=== PATIENT | male | born 1955 | race Caucasian/White ===

== ENCOUNTER 2016-04-16 06:43 | Day surgery (SDC) | payer BC ==
[2016-04-15 09:21] VITALS: BMI 28.9
[2016-04-16] MEDS ORDERED: LIDOCAINE HCL/PF 1% SDV 5ML VIAL ONE (07:51)
[2016-04-16] MEDS ORDERED: PROPOFOL 20 ML ONE ×3 (07:51)
[2016-04-16 08:55] VITALS: TEMP 98.1
[2016-04-16 09:16] VITALS: PULSE 74
[2016-04-16 10:17] LABS: BASOPHIL 0.3 % (0-2.0); EOSINOPHIL 1.3 % (0-4.5); MCH 30.6 pg (25.7-33.7); MCHC 34.6 g/dl (32.0-35.9); MEAN CELL VOLUME 88.5 fl (80-96); MEAN PLT VOLUME 7.8 fl (7.5-11.1); NEUTROPHILS 71.2 % (42.8-82.8); PLATELET COUNT 230 K/MM3 (134-434); WHITE BLOOD COUNT 9.9 K/mm3 (4.0-10.0)
[2016-04-16 10:48] LABS: ALBUMIN 3.9 g/dl (3.4-5.0); ANION GAP 11 (8-16); CALCIUM 8.7 mg/dL (8.5-10.1); CHOLESTEROL 204 mg/dL (50-200); CO2 24 mmol/L (21-32); CREATININE 0.7 mg/dL (0.7-1.3); GLUCOSE,RANDOM 96 mg/dL (74-106); LDL CHOLESTEROL (ONLY SJRH) 127 mg/dL (5-100); SGOT/AST 16 U/L (15-37); SGPT/ALT 24 U/L (12-78); TOT PROT 7.1 g/dl (6.4-8.2)
[2016-04-16 10:51] LABS: ALK PHOS 50 U/L (45-117); FERRITIN 247.428 ng/ml (16.4-293.9)
[2016-04-16 11:26] LABS: C-REACTIVE PROTEIN 4.2 MG/DL (0.00-0.3)
[2016-04-16 14:26] VITALS: BP 114/73
[2016-04-17 06:07] LABS: PROSTATE SPECIFIC ANTIGEN 1.5 ng/mL (0.0-4.0)
--- NOTE | 2016-04-19 10:23 | PATH ---
Surgical Pathology Report Patient Name: SHERRIE ZAIDI [facility] Rec. #: [id number] /Age/Gender: 1955 (Age: 60) / M Account: [id number] Location: U-ENDOSCOPY Taken: 04/16/2016 Received: 04/16/2016 Reported: 04/19/2016 Physicians: Michi Hwang M.D. Specimen(s) Received A: BX ILEUM & CECUM B: BX RT COLON C: BX TRANSVERSE COLON D: BX DESCENDING COLON E: BX SIGMOID F: BX RECTUM Clinical History Adenoma and ulcerative colitis surveillance Quiescent ulcerative colitis Final Diagnosis A. TERMINAL ILEUM AND CECUM, BIOPSY: COLONIC MUCOSA WITH NO PATHOLOGIC CHANGES. NO ACTIVE COLITIS, ARCHITECTURAL DISTORTION, GRANULOMATA, OR DYSPLASIA IDENTIFIED. B. COLON, RIGHT, BIOPSY: COLONIC MUCOSA WITH NO PATHOLOGIC CHANGES. NO ACTIVE COLITIS, ARCHITECTURAL DISTORTION, GRANULOMATA, OR DYSPLASIA IDENTIFIED. C. COLON, TRANSVERSE, BIOPSY: COLONIC MUCOSA WITH NO PATHOLOGIC CHANGES. NO ACTIVE COLITIS, ARCHITECTURAL DISTORTION, GRANULOMATA, OR DYSPLASIA IDENTIFIED. D. COLON, DESCENDING, BIOPSY: COLONIC MUCOSA WITH FOCAL ARCHITECTURAL DISTORTION SUGGESTIVE OF QUIESCENT COLITIS. NO ACTIVE COLITIS, ARCHITECTURAL DISTORTION, GRANULOMATA, OR DYSPLASIA IDENTIFIED. E. COLON, SIGMOID, BIOPSY: COLONIC MUCOSA WITH FOCAL ARCHITECTURAL DISTORTION SUGGESTIVE OF QUIESCENT COLITIS. NO ACTIVE COLITIS, ARCHITECTURAL DISTORTION, GRANULOMATA, OR DYSPLASIA IDENTIFIED. F. COLON, RECTUM, BIOPSY: COLONIC MUCOSA WITH SUBMUCOSAL ADIPOSE TISSUE SUGGESTIVE OF LIPOMA. NO ACTIVE COLITIS, ARCHITECTURAL DISTORTION, GRANULOMATA, OR DYSPLASIA IDENTIFIED. Electronically Signed Pipo Castle M.D. Gross Description A. Received in formalin, labeled "biopsy ileum and cecum" are 5 boyce, irregular portions of soft tissue averaging 0.3 cm. in greatest dimension. The specimens are submitted in toto in one cassette. B. Received in formalin, labeled "biopsy right colon" are 5 boyce, irregular portions of soft tissue ranging from 0.2-0.4 cm. in greatest dimension. The specimens are submitted in toto in one cassette. C. Received in formalin, labeled "biopsy transverse colon" are 4 boyce, irregular portions of soft tissue ranging from 0.1-0.3 cm. in greatest dimension. The specimens are submitted in toto in one cassette. D. Received in formalin, labeled "biopsy descending colon" are 4 boyce, irregular portions of soft tissue ranging from 0.2-0.3 cm. in greatest dimension. The specimens are submitted in toto in one cassette. E. Received in formalin, labeled "biopsy sigmoid" are 3 boyce, irregular portions of soft tissue ranging from 0.3-0.4 cm. in greatest dimension. The specimens are submitted in toto in one cassette. F. Received in formalin, labeled "biopsy rectum" are 3 boyce, irregular portions of soft tissue averaging 0.4 cm. in greatest dimension. The specimens are submitted in toto in one cassette. 04/16/2016 [facility]04/16/2016
== END 2016-04-16 09:50 | disposition home or self-care (01) ==
LOC: JASU-ENDO 06:43 → JASU-SURG 06:43 → JASU-ENDO 09:50
PROVIDERS: ATTEND Internal Medicine Gastroenterology
PROC: 0DBE8ZX Excision of Large Intestine, Via Natural or Artificial Opening Endoscopic, Diagnostic (ICD-10-PCS; principal; 2016-04-16 08:00)
DX: Z12.11 Encounter for screening for malignant neoplasm of colon (principal); K51.90 Ulcerative colitis, unspecified, without complications; Z86.010 Personal history of colon polyps
CPT/HCPCS: 36415; 80053; 82105; 82465; 82728; 83036; 83718; 83721; 84153; 84478; 85025; 86140; 88305-TC

== ENCOUNTER 2017-06-17 06:38 | Day surgery (SDC) | payer BC ==
[2017-06-16 11:51] VITALS: BMI 28.6
[2017-06-17 08:38] VITALS: TEMP 97.5
[2017-06-17 09:39] LABS: BASO % 0.3 % (0-2.0); EOS % 1.8 % (0-4.5); HEMATOCRIT 47.1 % (35.4-49); HEMOGLOBIN 16.1 GM/dL (11.7-16.9); LYMPH % 18.9 % (8-40); MCH 30.2 pg (25.7-33.7); MCHC 34.1 g/dl (32.0-35.9); MEAN CELL VOLUME 88.7 fl (80-96); MEAN PLT VOLUME 7.7 fl (7.5-11.1); MONO % 10.8 % (3.8-10.2); NEUT % 68.2 % (42.8-82.8); PLATELET COUNT 263 K/MM3 (134-434); RBC 5.31 M/mm3 (4.00-5.60); RDW 13.9 % (11.9-15.9); WHITE BLOOD COUNT 8.5 K/mm3 (4.0-10.0)
[2017-06-17 09:47] VITALS: BP 120/80; PULSE 81
[2017-06-17 09:58] LABS: ALBUMIN 4.3 g/dl (3.4-5.0); ANION GAP 9 (8-16); BILIRUBIN,TOTAL 0.8 mg/dL (0.2-1.0); BLOOD UREA NITROGEN 10 mg/dL (7-18); CALCIUM 9.3 mg/dL (8.5-10.1); CHLORIDE 100 mmol/L (98-107); CO2 27 mmol/L (21-32); CREATININE 0.7 mg/dL (0.7-1.3); GLUCOSE,RANDOM 110 mg/dL (74-106); POTASSIUM 3.8 mmol/L (3.5-5.1); SGOT/AST 17 U/L (15-37); SGPT/ALT 32 U/L (12-78); SODIUM 136 mmol/L (136-145); TOT PROT 7.6 g/dl (6.4-8.2)
[2017-06-17 10:01] LABS: ALK PHOS 59 U/L (45-117)
--- NOTE | 2017-06-20 11:34 | PATH ---
Surgical Pathology Report Patient Name: SHERRIE ZAIDI [facility]. Rec. #: [id number] /Age/Gender: 1955 (Age: 61) / M Account: [id number] Location: U-ENDOSCOPY Taken: 06/17/2017 Received: 06/17/2017 Reported: 06/20/2017 Physicians: Michi Hwang M.D. Specimen(s) Received A: BX CECUM B: BX RIGHT COLON C: BX PROXIMAL TRANSVERSE COLON D: BX DESCENDING COLON E: BX SIGMOID F: BX RECTUM Clinical History Ulcerative colitis and adenoma surveillance Final Diagnosis A. COLON, CECUM, BIOPSY: COLONIC MUCOSA WITH SMALL LYMPHOID AGGREGATE WITHIN LAMINA PROPRIA. NO ACTIVE COLITIS, ARCHITECTURAL DISTORTION, GRANULOMATA, OR DYSPLASIA IDENTIFIED. NO MICROSCOPIC COLITIS IDENTIFIED (NO LYMPHOCYTIC OR COLLAGENOUS COLITIS IDENTIFIED). B. COLON, RIGHT BIOPSY: COLONIC MUCOSA WITH NO PATHOLOGIC CHANGES. NO ACTIVE COLITIS, ARCHITECTURAL DISTORTION, GRANULOMATA, OR DYSPLASIA IDENTIFIED. NO MICROSCOPIC COLITIS IDENTIFIED (NO LYMPHOCYTIC OR COLLAGENOUS COLITIS IDENTIFIED). C. COLON, PROXIMAL TRANSVERSE, BIOPSY: COLONIC MUCOSA WITH NO PATHOLOGIC CHANGES. NO ACTIVE COLITIS, ARCHITECTURAL DISTORTION, GRANULOMATA, OR DYSPLASIA IDENTIFIED. NO MICROSCOPIC COLITIS IDENTIFIED (NO LYMPHOCYTIC OR COLLAGENOUS COLITIS IDENTIFIED). D. COLON, DESCENDING, BIOPSY: COLONIC MUCOSA WITH NO PATHOLOGIC CHANGES. NO ACTIVE COLITIS, ARCHITECTURAL DISTORTION, GRANULOMATA, OR DYSPLASIA IDENTIFIED. NO MICROSCOPIC COLITIS IDENTIFIED (NO LYMPHOCYTIC OR COLLAGENOUS COLITIS IDENTIFIED). E. COLON, SIGMOID, BIOPSY: COLONIC MUCOSA WITH EXTRAVASATION OF RED BLOOD CELLS WITHIN LAMINA PROPRIA. NO ACTIVE COLITIS, ARCHITECTURAL DISTORTION, GRANULOMATA, OR DYSPLASIA IDENTIFIED. NO MICROSCOPIC COLITIS IDENTIFIED (NO LYMPHOCYTIC OR COLLAGENOUS COLITIS IDENTIFIED). F. COLON, RECTUM, BIOPSY: COLONIC MUCOSA WITH HYPERPLASTIC CHANGES. NO ACTIVE INFLAMMATION, CRYPT ARCHITECTURE DISTORTION, GRANULOMAS, OR DYSPLASIA IDENTIFIED. NO MICROSCOPIC COLITIS IDENTIFIED (NO LYMPHOCYTIC OR COLLAGENOUS COLITIS IDENTIFIED). Electronically Signed Pipo Castle M.D. Gross Description A. Received in formalin, labeled "BX cecal rule out dysplasia" are 3 boyce, irregular portions of soft tissue ranging in size from 0.3-0.4 cm. in greatest dimension. The specimens are submitted in toto in one cassette. B. Received in formalin, labeled "BX right colon rule out dysplasia" are 2 boyce, irregular portions of soft tissue measuring 0.2 and 0.4 cm. in greatest dimension. The specimens are submitted in toto in one cassette. C. Received in formalin, labeled "BX proximal transverse colon rule out dysplasia" are 4 boyce, irregular portions of soft tissue ranging in size from 0.2-0.3 cm. in greatest dimension. The specimens are submitted in toto in one cassette. D. Received in formalin, labeled "BX descending colon rule out dysplasia" are 4 boyce, irregular portions of soft tissue ranging in size from 0.2-0.3 cm. in greatest dimension. The specimens are submitted in toto in one cassette. E. Received in formalin, labeled "BX sigmoid colon" are 4 boyce, irregular portions of soft tissue ranging in size from 0.2-0.4 cm. in greatest dimension. The specimens are submitted in toto in one cassette. F. Received in formalin, labeled "BX rectum rule out dysplasia" are 3 boyce, irregular portions of soft tissue ranging in size from 0.2-0.4 cm. in greatest dimension. The specimens are submitted in toto in one cassette. HIEU/06/17/2017 jenise06/17/2017
== END 2017-06-17 09:40 | disposition home or self-care (01) ==
LOC: JASU-ENDO 06:38
PROVIDERS: ATTEND Internal Medicine Gastroenterology
PROC: 0DBE8ZX Excision of Large Intestine, Via Natural or Artificial Opening Endoscopic, Diagnostic (ICD-10-PCS; principal; 2017-06-17 08:00)
DX: Z12.11 Encounter for screening for malignant neoplasm of colon (principal); K51.90 Ulcerative colitis, unspecified, without complications
CPT/HCPCS: 36415; 80053; 82306; 82728; 83540; 83550; 85025; 86140; 88305-TC

== ENCOUNTER 2018-06-09 06:49 | Day surgery (SDC) | payer BC ==
[2018-06-08 09:15] VITALS: BMI 25.9
[2018-06-09 08:50] VITALS: TEMP 98.3
[2018-06-09 10:30] VITALS: BP 125/88; PULSE 84
[2018-06-09 10:39] LABS: BASO % 0.1 % (0-2.0); EOS % 0.1 % (0-4.5); HEMATOCRIT 45.1 % (35.4-49); HEMOGLOBIN 15.4 GM/dL (11.7-16.9); LYMPH % 3.9 % (8-40); MCH 30.3 pg (25.7-33.7); MCHC 34.1 g/dl (32.0-35.9); MEAN CELL VOLUME 88.6 fl (80-96); MEAN PLT VOLUME 6.8 fl (7.5-11.1); MONO % 1.7 % (3.8-10.2); NEUT % 94.2 % (42.8-82.8); PLATELET COUNT 374 K/MM3 (134-434); RBC 5.09 M/mm3 (4.00-5.60); RDW 14.3 % (11.9-15.9); WHITE BLOOD COUNT 16.4 K/mm3 (4.0-10.0)
[2018-06-09 11:30] LABS: ALBUMIN 4.1 g/dl (3.4-5.0); ALK PHOS 57 U/L (45-117); ANION GAP 11 MMOL/L (8-16); BLOOD UREA NITROGEN 11 mg/dL (7-18); CALCIUM 9.1 mg/dL (8.5-10.1); CHLORIDE 96 mmol/L (98-107); CO2 26 mmol/L (21-32); CREATININE 0.7 mg/dL (0.55-1.3); GLUCOSE,RANDOM 123 mg/dL (74-106); POTASSIUM 3.7 mmol/L (3.5-5.1); SGOT/AST 11 U/L (15-37); SGPT/ALT 24 U/L (13-61); SODIUM 132 mmol/L (136-145); TOT PROT 7.5 g/dl (6.4-8.2)
[2018-06-09 11:49] LABS: ANISOCYTOSIS 0; MACROCYTOSIS 0; PLATELET ESTIMATE NORMAL
[2018-06-10 13:14] LABS: HEPATITIS B CORE ANTIBODY,IGM Negative (Negative)
[2018-06-10 16:11] LABS: CARCINOEMBRYONIC ANTIGEN 1.2 ng/mL (0.0-4.7)
[2018-06-10 19:12] LABS: HEP B CORE AB, IGM Negative (Negative); HEP B CORE AB, TOT Negative (Negative)
[2018-06-12 23:08] LABS: HBSAG SCREEN Negative (Negative); HEP A AB, IGM Negative (Negative); HEP B CORE AB, TOT Negative (Negative)
--- NOTE | 2018-06-13 12:56 | PATH ---
Surgical Pathology Report Patient Name: SHERRIE ZAIDI [facility]. Rec. #: [id number] /Age/Gender: 1955 (Age: 62) / M Account: [id number] Location: U-ENDOSCOPY Taken: 06/09/2018 Received: 06/12/2018 Reported: 06/13/2018 Physicians: Michi Hwang M.D. Specimen(s) Received A: 2ND PORTION DUODENUM AND BULB B: FUNDUS POLYPS C: ANTRUM D: GE JUNCTION E: CECUM F: RIGHT COLON G: PROXIMAL TRANSVERSE COLON H: DESCENDING COLON I: SIGMOID J: RECTAL POLYPS Clinical History Flare of ulcerative colitis, rectal bleeding, weight loss Postoperative diagnosis: Gastric fundic polyps, ulcerative colitis, rectal ulcers Final Diagnosis A. DUODENUM, SECOND PORTION AND BULB, BIOPSY: DUODENAL MUCOSA WITH NO PATHOLOGIC CHANGES. NO HISTOLOGIC EVIDENCE OF GLUTEN SENSITIVE ENTEROPATHY (CELIAC SPRUE) IDENTIFIED. B. STOMACH, FUNDUS, BIOPSY: HYPERPLASTIC FOVEOLAR GLAND POLYP AND MILD CHRONIC GASTRITIS. NO ADENOMATOUS CHANGE IDENTIFIED. IMMUNOSTAIN FOR H. PYLORI IS NEGATIVE. C. STOMACH, ANTRUM, BIOPSY: GASTRIC ANTRAL AND FUNDIC MUCOSA WITH MILD CHRONIC GASTRITIS. IMMUNOSTAIN FOR H. PYLORI IS NEGATIVE. D. 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 SQUAMOUS EPITHELIUM WITH PAPILLOMATOSIS SUGGESTIVE OF REFLUX ESOPHAGITIS PRESENT. NO DYSPLASIA IDENTIFIED. E. COLON, CECUM, BIOPSY: COLONIC MUCOSA WITH NO PATHOLOGIC CHANGES. NO ACTIVE COLITIS, ARCHITECTURAL DISTORTION, GRANULOMATA, OR DYSPLASIA IDENTIFIED. NO MICROSCOPIC COLITIS IDENTIFIED (NO LYMPHOCYTIC OR COLLAGENOUS COLITIS IDENTIFIED). F. COLON, RIGHT, BIOPSY: COLONIC MUCOSA WITH NO PATHOLOGIC CHANGES. NO ACTIVE COLITIS, ARCHITECTURAL DISTORTION, GRANULOMATA, OR DYSPLASIA IDENTIFIED. NO MICROSCOPIC COLITIS IDENTIFIED (NO LYMPHOCYTIC OR COLLAGENOUS COLITIS IDENTIFIED). G. COLON, PROXIMAL TRANSVERSE, BIOPSY: COLONIC MUCOSA WITH NO PATHOLOGIC CHANGES. NO ACTIVE COLITIS, ARCHITECTURAL DISTORTION, GRANULOMATA, OR DYSPLASIA IDENTIFIED. NO MICROSCOPIC COLITIS IDENTIFIED (NO LYMPHOCYTIC OR COLLAGENOUS COLITIS IDENTIFIED). H. COLON, DESCENDING, BIOPSY: COLONIC MUCOSA WITH NO PATHOLOGIC CHANGES. NO ACTIVE COLITIS, ARCHITECTURAL DISTORTION, GRANULOMATA, OR DYSPLASIA IDENTIFIED. NO MICROSCOPIC COLITIS IDENTIFIED (NO LYMPHOCYTIC OR COLLAGENOUS COLITIS IDENTIFIED). I. COLON, SIGMOID, BIOPSY: ACTIVE IDIOPATHIC INFLAMMATORY BOWEL DISEASE. NO GRANULOMA OR DYSPLASIA IDENTIFIED. J. COLON, RECTUM, BIOPSY: COLONIC MUCOSA WITH FOCAL ULCERATION WITH ASSOCIATED ACUTE AND CHRONIC INFLAMMATION AND REACTIVE CHANGES. NO DYSPLASIA OR GRANULOMA IDENTIFIED. Electronically Signed Pipo Castle M.D. Gross Description A. Received in formalin, labeled "second portion of duodenum and bulb" are 3 boyce, irregular portions of soft tissue ranging from 0.4-0.5 cm. in greatest dimension. The specimens are submitted in toto in one cassette. B. Received in formalin, labeled "gastric fundus polyps biopsy" are 4 boyce, irregular portions of soft tissue ranging from 0.3-0.4 cm. in greatest dimension. The specimens are submitted in toto in one cassette. C. Received in formalin, labeled "antrum biopsy" are 2 boyce, irregular portions of soft tissue measuring 0.4 and 0.6 cm. in greatest dimension. The specimens are submitted in toto in one cassette. D. Received in formalin, labeled "GE junction biopsy" are 2 boyce, irregular portions of soft tissue measuring 0.3 and 0.6 cm. in greatest dimension. The specimens are submitted in toto in one cassette. E. Received in formalin, labeled "cecum biopsy" are 4 boyce, irregular portions of soft tissue averaging 0.3 cm. in greatest dimension. The specimens are submitted in toto in one cassette. F. Received in formalin, labeled "right colon biopsy" are 7 boyce, irregular portions of soft tissue ranging from 0.1-0.4 cm. in greatest dimension. The specimens are submitted in toto in one cassette. G. Received in formalin, labeled "proximal transverse colon" are 4 boyce, irregular portions of soft tissue ranging from 0.3-0.7 cm. in greatest dimension. The specimens are submitted in toto in one cassette. H. Received in formalin, labeled "descending colon biopsy" are 4 boyce, irregular portions of soft tissue ranging from 0.2-0.6 cm. in greatest dimension. The specimens are submitted in toto in one cassette. I. Received in formalin, labeled "sigmoid colon biopsy" are 5 boyce, irregular portions of soft tissue ranging from 0.1-0.4 cm. in greatest dimension. The specimens are submitted in toto in one cassette. J. Received in formalin, labeled "rectum biopsy" are 2 boyce, irregular portions of soft tissue measuring 0.4 and 0.6 cm. in greatest dimension. The specimens are submitted in toto in one cassette. /06/12/2018 saudi06/12/2018
[2018-06-13 18:16] LABS: C-ANCA <1:20 titer (Neg:<1:20); P-ANCA <1:20 titer (Neg:<1:20); SERUM IRON SATURATION 8 % (15-55); TOTAL IRON BINDING CAPACITY 290 ug/dL (250-450); UIBC 267 ug/dL (111-343)
== END 2018-06-09 10:10 | disposition home or self-care (01) ==
LOC: JASU-ENDO 06:49
PROVIDERS: ATTEND Internal Medicine Gastroenterology
PROC: 0DBN8ZX Excision of Sigmoid Colon, Via Natural or Artificial Opening Endoscopic, Diagnostic (ICD-10-PCS; 2018-06-09)
PROC: 0DBM8ZX Excision of Descending Colon, Via Natural or Artificial Opening Endoscopic, Diagnostic (ICD-10-PCS; 2018-06-09)
PROC: 0DB48ZX Excision of Esophagogastric Junction, Via Natural or Artificial Opening Endoscopic, Diagnostic (ICD-10-PCS; 2018-06-09)
PROC: 0DB68ZX Excision of Stomach, Via Natural or Artificial Opening Endoscopic, Diagnostic (ICD-10-PCS; 2018-06-09)
PROC: 0DBH8ZX Excision of Cecum, Via Natural or Artificial Opening Endoscopic, Diagnostic (ICD-10-PCS; principal; 2018-06-09 08:00)
DX: Z12.11 Encounter for screening for malignant neoplasm of colon (principal); Z86.010 Personal history of colon polyps; K51.818 Other ulcerative colitis with other complication; K56.699 Other intestinal obstruction unspecified as to partial versus complete obstruction; K21.0 Gastro-esophageal reflux disease with esophagitis; K22.10 Ulcer of esophagus without bleeding; K31.7 Polyp of stomach and duodenum
CPT/HCPCS: 36415; 80053; 82378; 83520; 83540; 83550; 85025; 86256; 86480; 86671; 86704; 86705; 86706; 86707; 86708; 87340; 87350; 87522; 88305-TC; 88342-TC

== ENCOUNTER 2019-12-05 05:02 | Day surgery (SDC) | payer BC ==
[2019-12-03 15:42] VITALS: BMI 27.6
[2019-12-05 08:57] VITALS: TEMP 98
[2019-12-05 10:10] VITALS: BP 148/84; PULSE 73
[2019-12-05 10:12] LABS: BASO % 0.4 % (0-2.0); EOS % 0.9 % (0-4.5); HEMATOCRIT 46.9 % (35.4-49); LYMPH % 10.9 % (8-40); MCH 31.2 pg (25.7-33.7); MCHC 34.1 g/dl (32.0-35.9); MEAN CELL VOLUME 91.6 fl (80-96); MEAN PLT VOLUME 7.7 fl (7.5-11.1); MONO % 8.2 % (3.8-10.2); NEUT % 79.6 % (42.8-82.8); PLATELET COUNT 268 K/MM3 (134-434); RBC 5.12 M/mm3 (4.00-5.60); RDW 13.3 % (11.9-15.9); WHITE BLOOD COUNT 16.8 K/mm3 (4.0-10.0)
[2019-12-05 10:54] LABS: CHOLESTEROL 254 mg/dL (50-200); HDL CHOLESTEROL 70 mg/dL (40-60); IRON SERUM 23 ug/dL (50-175); LDL CHOLESTEROL (ONLY SJRH) 147 mg/dL (5-100); TRIGLYCERIDES 213 mg/dL (0-150)
[2019-12-05 11:01] LABS: TOTAL IRON BINDING CAPACITY 273 ug/dL (250-450)
[2019-12-05 11:07] LABS: BILIRUBIN,TOTAL 0.8 mg/dL (0.2-1); BLOOD UREA NITROGEN 11.4 mg/dL (7-18); CALCIUM 9.3 mg/dL (8.5-10.1); CREATININE 0.7 mg/dL (0.55-1.3); TOT PROT 7.4 g/dl (6.4-8.2)
[2019-12-05 14:16] LABS: PLATELET ESTIMATE NORMAL
[2019-12-08 20:07] LABS: C-ANCA <1:20 titer (Neg:<1:20)
[2019-12-10 16:09] LABS: ATYPICAL pANCA 1:40 titer (Neg:<1:20)
--- NOTE | 2019-12-10 17:19 | PATH ---
Surgical Pathology Report Patient Name: SHERRIE ZAIDI [facility]. Rec. #: [id number] /Age/Gender: 1955 (Age: 64) / M Account: [id number] Location: U-ENDOSCOPY Taken: 12/05/2019 Received: 12/05/2019 Reported: 12/10/2019 Physicians: Michi Hwang M.D. Specimen(s) Received A: GASTRIC ANTRUM B: GE JUNCTION C: ILEUM D: CECUM E: RIGHT COLON F: TRANVERSE COLON G: DESCENDING COLON H: SIGMOID COLON I: RECTUM (UPPER) @ 10CM J: ANUS (RECTUM @ 2CM) Clinical History Rule out Ingram's esophagus, h/o ulcerative colitis Postoperative diagnosis: GERD, gastritis, hiatal hernia, active proctosigmoiditis, ulcerative colitis Final Diagnosis A. GASTRIC ANTRUM, BIOPSY: GASTRIC MUCOSA WITH CHRONIC GASTRITIS. IMMUNOSTAIN FOR H. PYLORI IS NEGATIVE. NEGATIVE FOR INTESTINAL METAPLASIA. B. GE JUNCTION, BIOPSY: SQUAMOUS MUCOSA WITH NO SIGNIFICANT PATHOLOGIC CHANGE. NEGATIVE FOR INTESTINAL METAPLASIA. C. ILEUM, BIOPSY: ILEAL MUCOSA WITH NO SIGNIFICANT PATHOLOGIC CHANGE. NO EVIDENCE OF ACUTE INFLAMMATION. D. CECUM, BIOPSY: COLONIC MUCOSA WITH NO SIGNIFICANT PATHOLOGIC CHANGE. NO EVIDENCE OF ACUTE COLITIS. NEGATIVE FOR DYSPLASIA. E. RIGHT COLON, BIOPSY: COLONIC MUCOSA WITH NO SIGNIFICANT PATHOLOGIC CHANGE. NO EVIDENCE OF ACUTE COLITIS. NEGATIVE FOR DYSPLASIA. F. TRANSVERSE COLON, BIOPSY: COLONIC MUCOSA WITH NO SIGNIFICANT PATHOLOGIC CHANGE. NO EVIDENCE OF ACUTE COLITIS. NEGATIVE FOR DYSPLASIA. G. DESCENDING COLON, BIOPSY: COLONIC MUCOSA WITH FOCAL INCREASED EOSINOPHILS IN THE LAMINA PROPRIA. NO EVIDENCE OF ACUTE COLITIS. NEGATIVE FOR DYSPLASIA. H. SIGMOID COLON, BIOPSY: COLONIC MUCOSA WITH ACUTE AND CHRONIC INFLAMMATION IN THE LAMINA PROPRIA, ACUTE CRYPTITIS, AND ARCHITECTURAL DISTORTION. SEE COMMENT. I. RECTUM (UPPER) AT 10 CM, BIOPSY: COLONIC MUCOSA WITH FOCAL INCREASED EOSINOPHILS AND REACTIVE LYMPHOID AGGREGATE IN THE LAMINA PROPRIA. NO EVIDENCE OF ACUTE COLITIS. J. ANUS (RECTUM @2CM), BIOPSY: COLONIC MUCOSA WITH ACUTE AND CHRONIC INFLAMMATION IN THE LAMINA PROPRIA, ACUTE CRYPTITIS, AND ARCHITECTURAL DISTORTION. SEE COMMENT. Comment: There is no dysplasia or granuloma inflammation identified. In view of the prior clinical history of ulcerative colitis, findings are consistent with focal active ulcerative colitis (specimen H and specimen J). Electronically Signed Enrique Stein M.D. Gross Description A. Received in formalin, labeled "gastric antrum" are 2 boyce, irregular portions of soft tissue measuring 0.4 cm. in greatest dimension. The specimens are submitted in toto in one cassette. B. Received in formalin, labeled "GE junction" are 2 boyce, irregular portion of soft tissue measuring 0.3 cm. in greatest dimension. The specimens are submitted in toto in one cassette. C. Received in formalin, labeled "ileum" is a boyce, irregular portion of soft tissue measuring 0.4 cm. in greatest dimension. The specimens are submitted in toto in one cassette. D. Received in formalin, labeled "cecum" are 4 boyce, irregular portions of soft tissue measuring 0.5cm. in greatest dimension. The specimens are submitted in toto in one cassette. E. Received in formalin, labeled "right colon" are 2 boyce, irregular portion of soft tissue measuring 0.4cm. in greatest dimension. The specimens are submitted in toto in one cassette. F. Received in formalin, labeled "transverse colon" are 4 boyce, irregular portion of soft tissue measuring 0.3 cm. in greatest dimension. The specimens are submitted in toto in one cassette. G. Received in formalin, labeled "descending colon" are 5 boyce, irregular portions of soft tissue measuring 0.4 cm. in greatest dimension. The specimens are submitted in toto in one cassette. H. Received in formalin, labeled "sigmoid colon" are 2 bocye, irregular portion of soft tissue measuring 0.3 cm. in greatest dimension. The specimens are submitted in toto in one cassette. I. Received in formalin, labeled "rectum at 10 cm" are 3 boyce, irregular portion of soft tissue measuring 0.3 cm. in greatest dimension. The specimens are submitted in toto in one cassette. J. Received in formalin, labeled "anus (rectum at 2 cm)" are 3 boyce, irregular portions of soft tissue measuring 0.3 cm. in greatest dimension. The specimens are submitted in toto in one cassette. KWS12/06/2019 sulele12/06/2019
== END 2019-12-05 10:13 | disposition home or self-care (01) ==
LOC: JASU-ENDO 05:02
PROVIDERS: ATTEND Internal Medicine Gastroenterology
PROC: 0DB38ZX Excision of Lower Esophagus, Via Natural or Artificial Opening Endoscopic, Diagnostic (ICD-10-PCS; 2019-12-05)
PROC: 0DB68ZX Excision of Stomach, Via Natural or Artificial Opening Endoscopic, Diagnostic (ICD-10-PCS; 2019-12-05)
PROC: 0DBN8ZX Excision of Sigmoid Colon, Via Natural or Artificial Opening Endoscopic, Diagnostic (ICD-10-PCS; principal; 2019-12-05 08:00)
DX: Z12.11 Encounter for screening for malignant neoplasm of colon (principal); K51.90 Ulcerative colitis, unspecified, without complications; K64.8 Other hemorrhoids; K21.9 Gastro-esophageal reflux disease without esophagitis; K44.9 Diaphragmatic hernia without obstruction or gangrene; K29.70 Gastritis, unspecified, without bleeding
CPT/HCPCS: 36415; 80053; 80061; 82306; 82728; 83520; 83540; 83550; 83721; 84153; 84443; 85025; 86140; 86256; 86671; 88305-TC; 88342-TC